=== PATIENT | male | born 1955 | race Caucasian/White ===

== ENCOUNTER 2023-04-13 07:00 | Day surgery (SDC) | payer MEDICARE, BC ==
[2023-04-12 12:27] VITALS: BMI 30.9
[~2023-04-13 07:00] MED LIST: EPINEPHrine 0.3 MG in Ophthalmic Irrigation Solution 500 ML IRR SCH
[2023-04-13] MEDS ORDERED: Phenylephrine 10% OPTH 5 ML BOT ONE (07:27)
[2023-04-13] MEDS ORDERED: Cyclopentolate 1% Opth Drop 2 ML BOT ONE (07:28)
[2023-04-13] MEDS ORDERED: fentaNYL 50 mcg/mL 1 mL Vial ONE (07:49)
[2023-04-13] MEDS ORDERED: Famotidine/PF 20 mg/2ml Vial ONE (07:49)
[2023-04-13] MEDS ORDERED: ePHEDrine Sulfate 50 MG/10 ML VIAL ONE (09:05)
[2023-04-13] MEDS ORDERED: CEFAZOLIN 1 GM VIAL ONE (09:05)
[2023-04-13] MEDS ORDERED: Lidocaine 1% PF 5 ML VIAL ONE (09:05)
[2023-04-13] MEDS ORDERED: Maxitrol 0.1% Opth Oint 3.5 GM TUBE ONE (09:05)
[2023-04-13] MEDS ORDERED: PROPOFOL 200 MG/20 ML VIAL ONE (09:05)
[2023-04-13] MEDS ORDERED: Ondansetron PF 4 MG/2 ML Vial ONE (09:05)
[2023-04-13] MEDS ORDERED: Triamcinolone 40 MG/ML VIAL ONE (09:05)
[2023-04-13] MEDS ORDERED: Midazolam HCl 2 mg/2 ml Vial ONE (10:35)
== END 2023-04-13 11:57 | disposition home or self-care (01) ==
LOC: SDC 07:00
PROVIDERS: ATTEND Ophthalmology Retina Specialist
PROC: 08T53ZZ Resection of Left Vitreous, Percutaneous Approach (ICD-10-PCS; principal; 2023-04-13)
PROC: 08PK3JZ Removal of Synthetic Substitute from Left Lens, Percutaneous Approach (ICD-10-PCS; 2023-04-13)
PROC: 08RK3JZ Replacement of Left Lens with Synthetic Substitute, Percutaneous Approach (ICD-10-PCS; 2023-04-13)
DX: T85.22XA Displacement of intraocular lens, initial encounter (principal); H43.392 Other vitreous opacities, left eye; I10 Essential (primary) hypertension; I71.21 Aneurysm of the ascending aorta, without rupture; I71.23 Aneurysm of the descending thoracic aorta, without rupture; N40.0 Benign prostatic hyperplasia without lower urinary tract symptoms; Z79.899 Other long term (current) drug therapy; Z88.5 Allergy status to narcotic agent; Y77.2 Prosthetic and other implants, materials and accessory ophthalmic devices associated with adverse incidents
CPT/HCPCS: 66986; 67036; J3010; J0171; J0690; J2250; J2405; J2704; J3301; S0028